=== PATIENT | female | born 1995 | race Caucasian/White ===

== ENCOUNTER 2020-02-28 22:02 | Outpatient (REF) | payer MEDICAID, SELFPAY ==
[2020-03-03 15:38] LABS: Chlamydia Result Positive (Negative); GC Result Negative (Negative)
== END 2020-02-28 22:22 ==
LOC: NCHCN 22:02
PROVIDERS: PCP Pediatrics; Visit Provider Nurse Practitioner Family
DX: Z11.3 Encounter for screening for infections with a predominantly sexual mode of transmission (principal)
CPT/HCPCS: 87491; 87591

== ENCOUNTER 2020-03-04 11:15 | Outpatient (REF) | payer MEDICAID, SELFPAY ==
[2020-03-06 09:21] LABS: HBs Antibody, Quant 10.3 mIU/mL (See Note); Hepatitis B Surface Ab Positive (See Note)
[2020-03-06 09:24] LABS: Hep A Total Ab w Rflx IgM Positive (Negative)
[2020-03-06 09:33] LABS: Hepatitis C Ab w Rflx HCV PCR Negative (Negative)
[2020-03-06 09:48] LABS: HIV-1/2 Ag & Ab Screen Negative (Negative)
[2020-03-06 10:28] LABS: Syphilis Serology (RPR) Negative (Negative)
[2020-03-06 14:04] LABS: Hep A Antibody IgM Negative (Negative)
== END 2020-03-04 11:35 ==
LOC: NCHCN 11:15
PROVIDERS: PCP Pediatrics; Visit Provider Nurse Practitioner Family
DX: Z11.3 Encounter for screening for infections with a predominantly sexual mode of transmission (principal); Z11.59 Encounter for screening for other viral diseases; Z11.4 Encounter for screening for human immunodeficiency virus [HIV]
CPT/HCPCS: 86706; 86709; 86803; 87389; 86592

== ENCOUNTER 2020-05-28 18:19 | Outpatient (REF) | payer MEDICAID, SELFPAY ==
[2020-05-30 21:42] LABS: Chlamydia amplified RNA Negative (Negative); N gonorrhoeae amplified RNA Negative (Negative); Source VAGINAL
== END 2020-05-28 18:39 ==
LOC: NCHCN 18:19
PROVIDERS: PCP Pediatrics; Visit Provider Nurse Practitioner Family
DX: Z20.2 Contact with and (suspected) exposure to infections with a predominantly sexual mode of transmission (principal)
CPT/HCPCS: 87491; 87591

== ENCOUNTER 2020-07-23 16:57 | Outpatient (REF) | payer MEDICAID, SELFPAY ==
--- NOTE | 2020-07-23 16:30 | PAPFT_PTH ---
PATIENT: Patt Sharpe LOC: [facility] U#:[id number] AGE/SX: 24/F ROOM: RE07/23/[address]: Janell Wright : 1995 BED: DIS: 07/23/2020 SPEC #: [id number] RECD: 07/24/20 12:51 STATUS: DARIA GALEAS #: [id number] DAVID: 07/23/20 16:[address]: Janell Wright DEPT: [facility] Cytology RECD BY: Jeannette Diehl ENTERED: 07/24/20 12:52 SP TYPE: PAPFT OTHR DR: Leonora Saavedra MD Tissues: 1 - CX/ENDOCX FOR PAP SMEARS Procedures: PAP THIN PREP/[facility] Screening Comments: [id number] (CHLAMYDIA/GC)
[2020-07-23 22:06] LABS: HCT 36.3 % (36.0-46.0); HGB 12.7 g/dL (11.2-15.7); MCH 30.8 pg (27.0-33.0); MCV 88.1 fL (80-95); MPV 10.6 fL (8.0-11.0); Platelet Count 196 10^3/uL (130-400); RBC 4.12 10^6/uL (3.93-5.22); RDW 11.5 % (11.7-14.6); RDW-SD 37.2 fL; WBC 3.84 10^3/uL (4.4-10.8)
[2020-07-23 22:43] LABS: Anion Gap 7.2 mmol/L (3-11); BUN 8 mg/dL (7-18); CO2 28.8 mmol/L (21.0-32.0); CREATININE 0.64 mg/dL (0.55-1.02); Calcium 8.6 mg/dL (8.5-10.1); Chloride 106 mmol/L (98-107); Glucose 85 mg/dL (74-106); Potassium 3.8 mmol/L (3.5-5.1); Sodium 142 mmol/L (136-145); TSH (W/Ref FT4) 3.21 uIU/mL (0.36-3.74); Vitamin B12 1114 pg/mL (193-986)
[2020-07-24 05:06] LABS: Vitamin D 25 Total 29.8 ng/ml (30-100)
[2020-07-25 15:35] LABS: Chlamydia Result Negative (Negative); GC Result Negative (Negative)
== END 2020-07-23 17:17 ==
LOC: NCHCN 16:57
PROVIDERS: PCP Pediatrics; Visit Provider Nurse Practitioner Family
DX: F41.9 Anxiety disorder, unspecified (principal); Z13.21 Encounter for screening for nutritional disorder; Z12.4 Encounter for screening for malignant neoplasm of cervix
CPT/HCPCS: 80048; 82306; 85027; 87491; 87591; 88142; 82607; 84443

== ENCOUNTER 2021-05-07 17:03 | Outpatient (REF) | payer MEDICAID, SELFPAY | END 2021-05-07 17:04 | disposition home or self-care (01) | LOC: NCHCN 17:03 | PROVIDERS: Visit Provider Nurse Practitioner Family | DX: R30.9 Painful micturition, unspecified (principal) | CPT/HCPCS: 87077; 87086; 87186 ==